=== PATIENT | male | born 1960 | race Caucasian/White ===

== ENCOUNTER → 2019-06-21 08:27 | Outpatient (BNVA) | payer SELFPAY | PROVIDERS: Family Provider Nurse Practitioner Family; PCP Nurse Practitioner Family; Visit Provider Nurse Practitioner Family | DX: R73.09 Other abnormal glucose (principal) | CPT/HCPCS: 83036 ==

== ENCOUNTER → 2019-08-23 12:25 | Outpatient (BNVA) | payer SELFPAY | PROVIDERS: Family Provider Nurse Practitioner Family; PCP Nurse Practitioner Family; Visit Provider Family Medicine | DX: M62.838 Other muscle spasm (principal); E78.5 Hyperlipidemia, unspecified; Z86.39 Personal history of other endocrine, nutritional and metabolic disease | CPT/HCPCS: 80053; 80061; 83735 ==

== ENCOUNTER → 2019-10-03 12:09 | Outpatient (BNVA) | payer SELFPAY | PROVIDERS: Family Provider Nurse Practitioner Family; PCP Nurse Practitioner Family; Visit Provider Nurse Practitioner Family | DX: R39.11 Hesitancy of micturition (principal) | CPT/HCPCS: 81000 ==

== ENCOUNTER → 2019-10-11 09:58 | Outpatient (BNVA) | payer SELFPAY | PROVIDERS: Family Provider Nurse Practitioner Family; PCP Nurse Practitioner Family; Visit Provider Urology | DX: R39.9 Unspecified symptoms and signs involving the genitourinary system (principal); N40.1 Benign prostatic hyperplasia with lower urinary tract symptoms; R39.11 Hesitancy of micturition | CPT/HCPCS: 81001 ==

== ENCOUNTER 2020-02-13 14:23 | Outpatient (CLI) | payer SELFPAY ==
--- NOTE | 2020-02-13 14:34 | XR_ITS ---
WS: [id number] Left hip, AP and frog leg, AP pelvis, 02/13/2020 Clinical Data: PAIN LEFT HIP Comparison: None. Findings: No fractures or dislocations are seen. The left hip joint is intact. The right hip joint is normal. T he soft tissues are not remarkable. The pelvis is normal. The SI joints and pubic symphysis are unremarkable. There is degenerative change of the lower lumbar vertebral bodies. There is minimal calcification in the marrow portion of the proximal left femur whi ch is an incidental finding. XR/XR hip LT 2-3V wo/w pel* [id number] Impression: Negative pelvis and left hip.
--- NOTE | 2020-02-13 14:34 | XR_ITS ---
WS: [id number] Lumbar spine, 3 views, 02/13/2020 Clinical Data: BACK PAIN Comparison: None. Findings: No compression fractures are seen. There is osteoarthritic spurring of all the lumbar vertebral dana s. There is disc space narrowing at L2-L3, L3-L4 and L5-L1.The SI joints and pubic symphysis are not remarkable. There is an L5-S1 subluxation of 0.7 cm and a probable bilateral spondylolisthesis at L5- S1. XR/XR lumbar spine 2-3V* 20204 Impression: 1. Osteoarthritis of all the lumbar vertebral bodies. 2. Degenerative disc narrowing at L2-L3, L3-L4 and L5-S1. 3. 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
== END 2020-02-13 14:24 | disposition home or self-care (01) ==
LOC: RAD 14:27
PROVIDERS: PCP Nurse Practitioner Family; Visit Provider Nurse Practitioner Family
DX: M25.552 Pain in left hip (principal); M54.5 Low back pain; M47.9 Spondylosis, unspecified; M47.816 Spondylosis without myelopathy or radiculopathy, lumbar region; M43.07 Spondylolysis, lumbosacral region; S33.39XA Dislocation of other parts of lumbar spine and pelvis, initial encounter; X58.XXXA Exposure to other specified factors, initial encounter
CPT/HCPCS: 72100; 73502

== ENCOUNTER 2020-03-17 15:02 | Outpatient (CLI) | payer SELFPAY ==
--- NOTE | 2020-03-17 | MR_ITS ---
WS: [id number] MRI LUMBAR SPINE NONCONTRAST HISTORY: Back pain and degenerative joint disease. COMPARISON: 02/13/2020. TECHNIQUE: Sagittal and axial multisequence imaging is submitted. L5 anterolisthesis by 6.9 mm. 2 to 3 mm retrolisthesis of L2-L4. Severe disc space narrowing at L5-S1 . Moderate disc desiccation at the remaining lumbar levels. Sclerotic changes at L5-S1 endplates. Mil d LEFT convex curvature the lumbar spine. Conus terminates normally at L1-2 disc level. Rounded nodules in the thecal sac at the L2 and L3 level interspersed and inseparable from the nerve roots. The largest at L3 measures 11 mm. At the L2-3 disc additional well-rounded nodules 6.5 mm. The se are slightly increased signal on the T1 sequence and low 1 T2. L1-L2: Normal. L2-L3: Mild annular disc bulging and facet arthritis. No significant stenosis. L3-L4: Mild annular disc bulging and facet arthritis. Small amount of fluid in the facet joints. Mild bilateral foraminal narrowing. L4-L5: Mild annular disc bulging and facet joint arthritis. Small amount of fluid in the facet joints . Very minimal encroachment upon the subarticular recesses with moderate RIGHT and moderate to severe LEFT foraminal stenosis. L5-S1: Diffuse annular disc bulging and facet joint arthritis. Moderate bilateral foraminal stenosis. No retroperitoneal abnormality. MR/MR lumbar spine wo con* [id number] IMPRESSION: 1. Moderate to severe advanced degenerative changes throughout the lumbar spin e with no acute fracture. 2. L5 anterolisthesis by 6.9 mm. 3. Moderate to severe LEFT foraminal stenosis at L4-5 with moderate RIGHT sten osis. 4. Moderate bilateral foraminal stenosis at L5-S1. 5. Soft tissue nodules associated with the nerve roots in the thecal sac at th e L2 and L3 levels. Schwannoma, metastasis and ependymoma should be considered. Recommend follow-up MRI lumbar spine with contrast.
== END 2020-03-17 15:03 | disposition home or self-care (01) ==
LOC: RADWPI 15:07
PROVIDERS: PCP Nurse Practitioner Family; Visit Provider Nurse Practitioner Family
DX: M54.9 Dorsalgia, unspecified (principal); R93.7 Abnormal findings on diagnostic imaging of other parts of musculoskeletal system; M25.552 Pain in left hip; M19.90 Unspecified osteoarthritis, unspecified site; M48.061 Spinal stenosis, lumbar region without neurogenic claudication; M48.07 Spinal stenosis, lumbosacral region
CPT/HCPCS: 72148